=== PATIENT | female | born 1990 | race Two or more races ===

== ENCOUNTER 2018-09-04 06:21 | Emergency (ER) | payer BC, OTHER ==
[~2018-09-04] VITALS: Ht 160 cm; Wt 70.3 kg
[2018-09-04 06:35] VITALS: BP 132/84
== END 2018-09-04 08:50 | disposition left against medical advice (07) ==
LOC: EDBD 06:21 → ER 06:21
DX: S81.012A Laceration without foreign body, left knee, initial encounter (principal); S81.812A Laceration without foreign body, left lower leg, initial encounter; Z53.21 Procedure and treatment not carried out due to patient leaving prior to being seen by health care provider; W26.8XXA Contact with other sharp object(s), not elsewhere classified, initial encounter; Y93.39 Activity, other involving climbing, rappelling and jumping off; Y92.89 Other specified places as the place of occurrence of the external cause; Y99.8 Other external cause status

== ENCOUNTER 2019-07-13 01:24 | Emergency (ER) | payer BC, MEDICAID, OTHER ==
[~2019-07-13] VITALS: Ht 157.5 cm; Wt 77.1 kg
[2019-07-13 01:37] VITALS: BP 136/85
[2019-07-13 02:25] LABS: Basophils # (auto) 0.1 uL; Basophils % (auto) 0.3 % (0.0-2.0); Eosinophils # (auto) 0.1 uL; Eosinophils % (auto) 0.7 % (0.0-7.0); Hematocrit 42.2 % (36.0-46.0); Hemoglobin 14.2 g/dL (12.2-16.2); Lymphocytes # (auto) 0.8 uL; Lymphocytes % (auto) 4.7 % (10.0-50.0); Mean Corpuscular Hemoglobin 32.3 pg (28.0-32.0); Mean Corpuscular Hgb Conc. 33.6 g/dL (32.0-36.0); Mean Corpuscular Volume 96.1 fL (80.0-100.0); Monocytes # (auto) 0.9 uL; Monocytes % (auto) 5.2 % (0.0-12.0); Neutrophils # (auto) 14.7 uL; Neutrophils % (auto) 89.1 % (37.0-80.0); Platelet Count (auto) 326 10^3/uL (140-450); Red Blood Cells 4.39 10^6/uL (4.0-5.20); Red Cell Distribution Width 15.3 % (11.8-14.3); White Blood Cell 16.5 10^3/uL (4.4-10.8)
[2019-07-13 02:33] LABS: Urine Amorphous Crystal FEW /hpf (None Seen); Urine Bacteria FEW /hpf (None Seen); Urine Blood 1+ /uL (Negative); Urine Mucus FEW (None Seen); Urine Specific Gravity 1.021 (1.001-1.035); Urine WBC 1 /hpf (0 - 5)
[2019-07-13 02:38] LABS: Albumin 3.3 g/dL (3.4-5.0); BUN/Creatinine Ratio 9.5; Calcium 8.3 mg/dL (8.5-10.1); Potassium 3.2 mmol/L (3.5-5.1)
[2019-07-13 02:42] LABS: Bilirubin, Total 0.3 mg/dL (0.2-1.0); Total Protein 7.7 g/dL (6.4-8.2)
== END 2019-07-13 02:30 | disposition left against medical advice (07) ==
LOC: ER 01:27
DX: R10.9 Unspecified abdominal pain (principal); Z53.21 Procedure and treatment not carried out due to patient leaving prior to being seen by health care provider
CPT/HCPCS: 36415; 80053; 81001; 83690; 84702; 85025

== ENCOUNTER 2019-07-29 22:52 | Emergency (ER) | payer MEDICAID ==
[~2019-07-29] VITALS: Ht 157.5 cm; Wt 81.0 kg
[2019-07-29 23:34] VITALS: BP 121/65
[2019-07-30 01:09] LABS: Urine Bacteria NONE SEEN /hpf (None Seen); Urine Blood TRACE /uL (Negative); Urine Mucus FEW (None Seen); Urine Specific Gravity 1.027 (1.001-1.035); Urine WBC 1 /hpf (0 - 5)
== END 2019-07-30 01:48 | disposition left against medical advice (07) ==
LOC: ER 22:52
DX: R52 Pain, unspecified (principal); Z53.21 Procedure and treatment not carried out due to patient leaving prior to being seen by health care provider
CPT/HCPCS: 36415; 81001; 84702